=== PATIENT | male | born 2000 | race Caucasian/White ===

== ENCOUNTER 2023-02-03 10:49 | Emergency (ER) | payer MEDICAID ==
[2023-02-03] MEDS: Ketorolac 60 MG/2 ML SDV IM ONE (12:00)
[2023-02-03 12:08] LABS: BASOPHILS ABSOLUTE AUTO 0.04 K/uL (0.02-0.10); BASOPHILS PERCENT AUTO 0.3 % (0.0-0.5); EOSINOPHILS ABSOLUTE AUTO 0.22 K/uL (0.04-0.40); EOSINOPHILS PERCENT AUTO 1.6 % (1.0-5.0); HEMATOCRIT 47.2 % (40.0-54.0); HEMOGLOBIN 16.6 g/dL (13.0-18.0); LYMPHOCYTES ABSOLUTE AUTO 1.72 K/uL (1.50-4.00); LYMPHOCYTES PERCENT AUTO 12.7 % (20.0-40.0); MEAN CORPUSCULAR HEMOGLOBIN 31.9 pg (27.0-32.0); MEAN CORPUSCULAR HGB CONC 35.2 g/dL (31.0-35.0); MEAN CORPUSCULAR VOLUME 91 fL (76-96); MEAN PLATELET VOLUME 11.2 fL (6.0-10.0); MONOCYTES ABSOLUTE AUTO 1.09 K/uL (0.20-0.80); MONOCYTES PERCENT AUTO 8.1 % (3.0-10.0); NEUTROPHILS ABSOLUTE AUTO 10.45 K/uL (2.00-7.50); NEUTROPHILS PERCENT AUTO 77.3 % (45.0-70.0); PLATELET COUNT,PLT 191 K/uL (150-400); RED BLOOD CELL COUNT 5.21 M/uL (4.50-6.50); RED CELL DISTRIBUTION WIDTH 12.7 % (11.0-16.0); WHITE BLOOD CELL COUNT,WBC 13.5 K/uL (4.0-11.0)
[2023-02-03 12:24] LABS: A/G RATIO 0.9 (0.8-2.0); ANION GAP 18.5 mmol/L (5.0-15.0); BILIRUBIN TOTAL 1.4 mg/dL (0.0-1.0); BUN/CREATININE RATIO 17.8 (6-25); CALCIUM 9.6 mg/dL (8.5-10.1); CARBON DIOXIDE,CO2 25.3 mmol/L (21.0-32.0); CREATININE 1.01 mg/dL (0.70-1.30); EST CRCL DRUG DOSING (CG) 125.92 mL/min; POTASSIUM,K 3.8 mmol/L (3.5-5.1); PROTEIN TOTAL,TP 8.5 g/dL (6.4-8.2)
== END 2023-02-03 13:06 | disposition home or self-care (01) ==
LOC: LB.ED 10:49
DX: M79.89 Other specified soft tissue disorders (principal); I82.422 Acute embolism and thrombosis of left iliac vein; Z79.01 Long term (current) use of anticoagulants
CPT/HCPCS: 36415; 80053; 85025; 85379; 96372; 99283; 99284; J1885

== ENCOUNTER 2023-08-11 11:23 | Emergency (ER) | payer MEDICAID, OTHER ==
[2023-08-11] MEDS: Morphine 2 MG/ML SYRINGE IM ONE (11:39)
== END 2023-08-11 12:10 | disposition home or self-care (01) ==
LOC: LB.ED 11:23
DX: S53.024A Posterior dislocation of right radial head, initial encounter (principal); Z79.899 Other long term (current) drug therapy; W10.9XXA Fall (on) (from) unspecified stairs and steps, initial encounter
CPT/HCPCS: 24600; 73070; 96372; 99283; J2270